=== PATIENT | male | born 2000 | race African-American/Black ===

== ENCOUNTER 2024-02-05 14:06 | Inpatient (IN) | payer SELFPAY ==
[2024-02-05] MEDS ORDERED: Haloperidol Lactate 5 MG/ML VIAL ONE (14:51)
[2024-02-05 15:51] LABS: #Basophils 0.03 10x3/uL (0.0-0.2); %Basophils 0.3 % (0.0-1.0); %Eosinophils 0.5 % (0.0-10.0); %Lymphocytes 12.3 % (21.0-51.0); %Monocytes 5.8 % (0.0-10.0); %Neutrophils 80.9 % (42.0-75.0); Hematocrit 46.6 % (42.0-52.0); Hemoglobin 15.4 g/dL (14.0-18.0); Mean Corpuscular Hemoglobin 27.6 pg (27.0-31.0); Mean Corpuscular Volume 83.5 fL (78.0-98.0); Mean Platelet Volume 10.3 fL (7.4-10.4); Platelet Count 296 10x3/uL (130-400); RBC Distribution Width 13.5 % (11.5-14.5); Red Blood Cell (RBC) Count 5.58 mill/uL (4.70-6.10)
[2024-02-05 16:12] LABS: ALT (SGPT) 30 U/L (8-55); AST (SGOT) 24 U/L (5-34); Albumin 4.3 g/dL (3.5-5.0); Alkaline Phosphatase 61 U/L (40-110); Anion Gap 13 mmol/L (10-20); BUN (Urea Nitrogen) 16 mg/dL (8.9-20.6); Bilirubin, Total 0.5 mg/dL (0.2-1.2); Calc. Creatinine Clearance 0 mL/min (70-130); Calcium 9.9 mg/dL (7.8-10.44); Carbon Dioxide 26 mmol/L (22-29); Chloride 104 mmol/L (98-107); Estimated GFR 117; Globulin 3.9 g/dL (2.4-3.5); Glucose 120 mg/dL (70-105); Lipase 17 U/L (8-78); Potassium 3.8 mmol/L (3.5-5.1); Protein, Total 8.2 g/dL (6.0-8.3); Sodium 139 mmol/L (136-145)
[2024-02-05] MEDS ORDERED: Ketorolac Tromethamine 30 MG (1 mL) VIAL ONE (16:25)
[2024-02-05] MEDS ORDERED: Ondansetron PF 4 MG/2 ML Vial ONE (16:26)
[2024-02-05 17:15] LABS: Magnesium 1.8 mg/dL (1.6-2.6)
[2024-02-05 17:16] LABS: Acetaminophen Less than 10 mcg/mL (Less than 10); Alcohol Less than 10.0 mg/dL (Less than 10); Salicylate Less than 8.0 mg/dL (Less than 8.0)
[2024-02-05 17:24] LABS: Troponin I Less than 0.010 ng/mL (< 0.028)
[2024-02-05 18:10] LABS: Amphetamine Not Detected (NotDetected); Barbiturates Screen Not Detected (NotDetected); Benzodiazepine Screen Not Detected (NotDetected); Cocaine Metabolite Screen Not Detected (NotDetected); Methadone Not Detected (NotDetected); Methamphetamine Not Detected (NotDetected); Opiate Screen Not Detected (NotDetected); Oxycodone Screen Not Detected (NotDetected); Phencyclidine (PCP) Not Detected (NotDetected); THC/Cannabinoid Screen Detected (NotDetected); Tricyclic Screen Not Detected (NotDetected)
[2024-02-05] MEDS ORDERED: Lorazepam 2 MG/ML VIAL ONE (18:11)
[2024-02-05] MEDS ORDERED: Procainamide 2,000 MG in Sodium Chloride 0.9% 500 ML IVPB SCH (18:15)
[2024-02-05 20:12] LABS: Troponin I Less than 0.010 ng/mL (< 0.028)
[2024-02-05] MEDS ORDERED: Magnesium 2 GM/50 ML BAG (IN WATER) ONE (20:27)
[2024-02-05] MEDS ORDERED: Sodium Chloride 0.9% 1,000 ML IV SCH (21:30)
[2024-02-05] MEDS ORDERED: Calcium Carbonate 500 MG ChewTAB PO PRN (21:39)
[2024-02-05] MEDS ORDERED: Bisacodyl 10 MG SUPP PR PRN (21:39)
[2024-02-05] MEDS ORDERED: Ondansetron ODT 4 MG TAB PO PRN (21:39)
[2024-02-05] MEDS ORDERED: Senokot S 8.6-50 MG TAB PO PRN (21:39)
[2024-02-05] MEDS ORDERED: Acetaminophen 325 MG TAB PO PRN (21:39)
[2024-02-05] MEDS ORDERED: Atropine Sulfate 1 mg/10 ml Syringe IVP PRN (21:41)
[2024-02-05] MEDS ORDERED: Promethazine HCl 25 MG in Sodium Chloride 0.9% 50 ML IVPB PRN (21:42)
[2024-02-05] MEDS ORDERED: Mag-Al 1200 mg/1200 mg/30 ML UDCUP PO PRN (21:42)
[2024-02-05 21:49] VITALS: BMI 34.2
[2024-02-05] MEDS: D5 LR w/20 mEq KCL 1,000 ML IV SCH (22:52)
[2024-02-05 23:51] LABS: Troponin I Less than 0.010 ng/mL (< 0.028)
[2024-02-06] MEDS: Ondansetron PF 4 MG/2 ML Vial IVP PRN (03:21)
[2024-02-06 04:58] LABS: #Basophils Less than 0.03 10x3/uL (0.0-0.2); #Eosinophils Less than 0.03 10x3/uL (0.0-0.7); %Basophils 0.1 % (0.0-1.0); %Lymphocytes 8.4 % (21.0-51.0); %Monocytes 4.8 % (0.0-10.0); %Neutrophils 86.4 % (42.0-75.0); Hematocrit 42.5 % (42.0-52.0); Hemoglobin 14.3 g/dL (14.0-18.0); Mean Corpuscular HGB CONC 33.6 g/dL (32.0-36.0); Mean Corpuscular Hemoglobin 27.8 pg (27.0-31.0); Mean Corpuscular Volume 82.5 fL (78.0-98.0); Mean Platelet Volume 9.9 fL (7.4-10.4); Platelet Count 277 10x3/uL (130-400); RBC Distribution Width 13.5 % (11.5-14.5); Red Blood Cell (RBC) Count 5.15 mill/uL (4.70-6.10)
[2024-02-06 05:30] LABS: ALT (SGPT) 24 U/L (8-55); AST (SGOT) 18 U/L (5-34); Albumin 3.7 g/dL (3.5-5.0); Alkaline Phosphatase 56 U/L (40-110); Anion Gap 11 mmol/L (10-20); BUN (Urea Nitrogen) 12 mg/dL (8.9-20.6); Bilirubin, Total 0.6 mg/dL (0.2-1.2); Calc. Creatinine Clearance 206 mL/min (70-130); Calcium 9.2 mg/dL (7.8-10.44); Carbon Dioxide 22 mmol/L (22-29); Chloride 107 mmol/L (98-107); Estimated GFR 124; Globulin 3.6 g/dL (2.4-3.5); Glucose 126 mg/dL (70-105); Magnesium 1.9 mg/dL (1.6-2.6); Phosphorus 2.8 mg/dL (2.3-4.7); Potassium 3.9 mmol/L (3.5-5.1); Protein, Total 7.3 g/dL (6.0-8.3); Sodium 136 mmol/L (136-145)
[2024-02-06] MEDS: Pantoprazole DR 40 MG TAB PO SCH (07:05)
[2024-02-06] MEDS ORDERED: Magnesium 2 GM/50 ML(in water) 2 GM in Premix 1 BAG IVPB SCH (08:00)
[2024-02-06] MEDS: Enoxaparin 40 MG (0.4 mL) SYRINGE SC SCH (08:32)
[2024-02-06 15:53] VITALS: BP 152/89; TEMP 97.6
== END 2024-02-06 16:45 | disposition home or self-care (01) | DRG 392 ==
LOC: ERS 14:06 → CCU 19:22 → 2NO 02-06 09:44
PROVIDERS: ADMIT Internal Medicine; ATTEND Internal Medicine
DX: R11.2 Nausea with vomiting, unspecified (principal); I48.91 Unspecified atrial fibrillation; E83.42 Hypomagnesemia; F12.10 Cannabis abuse, uncomplicated; E86.0 Dehydration
CPT/HCPCS: 36415; 71045; 80053; 80306; 80307; 83690; 83735; 84100; 84443; 84484; 85025; 93005; 93010; 93306; J1630; J1885; J2060; J2405; J2690; J3475; J3480; J7030

== ENCOUNTER 2024-11-25 20:39 | Emergency (ER) | payer SELFPAY ==
[2024-11-25 21:26] LABS: #Basophils 0.04 10x3/uL (0.0-0.2); #Eosinophils 0.06 10x3/uL (0.0-0.7); #Monocytes 0.83 10x3/uL (0.11-0.59); #Neutrophils 5.80 10x3/uL (1.40-6.50); %Basophils 0.5 % (0.0-1.0); %Eosinophils 0.7 % (0.0-10.0); %Lymphocytes 21.5 % (21.0-51.0); %Monocytes 9.6 % (0.0-10.0); %Neutrophils 67.4 % (42.0-75.0); Hematocrit 41.9 % (42.0-52.0); Hemoglobin 13.7 g/dL (14.0-18.0); Mean Corpuscular Hemoglobin 27.2 pg (27.0-31.0); Mean Corpuscular Volume 83.3 fL (78.0-98.0); Platelet Count 246 10x3/uL (130-400); Red Blood Cell (RBC) Count 5.03 mill/uL (4.70-6.10); White Blood Cell (WBC) Count 8.61 10x3/uL (4.8-10.8)
[2024-11-25 21:27] LABS: ALT (SGPT) Less than 7 U/L (Less than 45); AST (SGOT) 35 U/L (11-34); Albumin 4.3 g/dL (3.1-4.5); Alkaline Phosphatase 54 U/L (40-110); Anion Gap 18 mmol/L (10-20); BUN (Urea Nitrogen) 10 mg/dL (8.9-20.6); Bilirubin, Total 0.7 mg/dL (0.3-1.2); Calc. Creatinine Clearance 0 mL/min (70-130); Calcium 9.7 mg/dL (7.8-10.44); Carbon Dioxide 26 mmol/L (22-29); Chloride 107 mmol/L (98-107); Globulin 3.2 g/dL (2.4-3.5); Glucose 132 mg/dL (70-105); Potassium 3.8 mmol/L (3.5-5.1); Sodium 147 mmol/L (136-145)
[2024-11-25] MEDS ORDERED: Ketorolac Tromethamine 30 MG (1 mL) VIAL ONE (21:30)
== END 2024-11-25 23:54 | disposition home or self-care (01) ==
LOC: ERS 20:39
DX: K31.84 Gastroparesis (principal); R11.16 Cannabis hyperemesis syndrome; R11.2 Nausea with vomiting, unspecified; I48.91 Unspecified atrial fibrillation
CPT/HCPCS: 80053; 83690; 85025; 93005; 96361; 96365; 96375; J1630; J1885

== ENCOUNTER 2024-12-05 15:37 | Emergency (ER) | payer SELFPAY ==
[2024-12-05] MEDS ORDERED: HYDROcodone/Acetaminophen 10/325 mg Tablet ONE (16:47)
== END 2024-12-05 16:48 | disposition home or self-care (01) ==
LOC: ERS 15:37
DX: K02.9 Dental caries, unspecified (principal); K08.89 Other specified disorders of teeth and supporting structures
CPT/HCPCS: 99282